=== PATIENT | male | born 1960 | race Caucasian/White ===

== ENCOUNTER 2016-12-02 05:49 | Day surgery (SDC) | payer BC ==
[2016-12-02] MEDS ORDERED: MIDAZOLAM INJ 5 MG/5 ML VIAL ONE (08:47)
[2016-12-02] MEDS ORDERED: PROPARACAINE 0.5% OPHTH SOL 15 ML BTTL ONE (12:40)
[2016-12-02] MEDS ORDERED: TROP 1%/CYCLOPEN 1%/PHENYL 2% DROPS ONE (12:41)
[2016-12-02] MEDS ORDERED: LIDOCAINE 1% PF 2 ML AMP INJ ONE (14:54)
[2016-12-02] MEDS ORDERED: TOBRAMYCIN SULF 0.3 % OPHT SOL 1 DROP RIGHT_EYE ONE ×2 (15:01→15:08)
[2016-12-02] MEDS ORDERED: DEXAMETHASONE 0.1% OPHTH SOL 1 DROP RIGHT_EYE ONE ×2 (15:01→15:08)
[2016-12-02] MEDS ORDERED: BRIMONIDINE 0.2% OPHTH DROPS RIGHT_EYE ONE ×2 (15:01→15:08)
[2016-12-02 15:07] VITALS: TEMP 97.6
[2016-12-02 15:50] VITALS: BP 126/78; O2SAT 98
== END 2016-12-02 15:30 | disposition home or self-care (01) ==
LOC: AMB 05:49
PROVIDERS: ATTEND Ophthalmology
DX: H25.11 Age-related nuclear cataract, right eye (principal); J45.909 Unspecified asthma, uncomplicated
CPT/HCPCS: 00142; 66984; J2250

== ENCOUNTER → 2017-01-17 | Outpatient (CLI) | payer BC | END | disposition home or self-care (01) | LOC: GMAB 11:34 | PROVIDERS: ATTEND Family Medicine | DX: Z00.00 Encounter for general adult medical examination without abnormal findings (principal) ==

== ENCOUNTER 2017-02-14 06:01 | Day surgery (SDC) | payer BC ==
[2017-02-14] MEDS ORDERED: MIDAZOLAM INJ 2 MG/2 ML VIAL ONE (10:25)
[2017-02-14] MEDS ORDERED: TROP 1%/CYCLOPEN 1%/PHENYL 2% DROPS ONE (12:03)
[2017-02-14] MEDS: TOBRAMYCIN SULF 0.3 % OPHT SOL 1 DROP LEFT_EYE ONE ×2 (12:04→12:59)
[2017-02-14] MEDS: PROPARACAINE 0.5% OPHTH SOL 15 ML BTTL ONE ×2 (12:04→12:40)
[2017-02-14] MEDS ORDERED: LIDOCAINE 1% MPF 5 ML VIAL INJ ONE (12:45)
[2017-02-14] MEDS ORDERED: DEXAMETHASONE 0.1% OPHTH SOL 1 DROP LEFT_EYE ONE (12:59)
[2017-02-14] MEDS ORDERED: BRIMONIDINE 0.2% OPHTH DROPS LEFT_EYE ONE (12:59)
[2017-02-14 14:20] VITALS: BP 120/72; O2SAT 98
[2017-02-14 14:40] VITALS: TEMP 98.6
== END 2017-02-14 13:40 | disposition home or self-care (01) ==
LOC: AMB 06:01
PROVIDERS: ATTEND Ophthalmology
DX: H25.12 Age-related nuclear cataract, left eye (principal)
CPT/HCPCS: 66984; J2250

== ENCOUNTER → 2017-11-21 | Outpatient (CLI) | payer BC | LOC: GMAE 14:48 | PROVIDERS: ATTEND Family Medicine | DX: Z00.00 Encounter for general adult medical examination without abnormal findings (principal); R50.9 Fever, unspecified ==

== ENCOUNTER → 2018-03-08 | Outpatient (CLI) | payer BC | LOC: GMAE 17:13 | PROVIDERS: ATTEND Family Medicine | DX: E29.1 Testicular hypofunction (principal) ==

== ENCOUNTER → 2019-04-19 | Outpatient (CLI) | payer BC | LOC: GMAE 11:14 | PROVIDERS: ATTEND Family Medicine | DX: Z00.00 Encounter for general adult medical examination without abnormal findings (principal) ==